=== PATIENT | male | born 1975 | race Caucasian/White ===

== ENCOUNTER 2017-07-03 00:42 | Emergency (ER) | payer SELFPAY ==
[~2017-07-03] VITALS: Ht 188 cm; Wt 159.0 kg
[~2017-07-03 00:42] MED LIST: DICY1TAB26 PO; LEVA500T33 PO; PROM1SUP12 PR; Z.0.NO CURRENT MEDS
[2017-07-03 00:44] VITALS: BP 174/85; PULSE 64; RESP 16; TEMP 97.4; O2SAT 99
[2017-07-03] MEDS ORDERED: LISI-515 PO (01:50)
[2017-07-03] MEDS ORDERED: PROCHLORPERAZINE INJ 10 MG/2 ML VIAL IV PUSH ONE (02:15)
[2017-07-03] MEDS ORDERED: SODIUM CHLORIDE 0.9% FLUSH 10 ML FLUSH IVF PRN (02:15)
[2017-07-03] MEDS ORDERED: diphenhydrAMINE HCL 50 MG/ML VIAL IV PUSH ONE (02:15)
[2017-07-03] MEDS ORDERED: ASPIRIN 81 MG CHEW TAB PO ONE (02:15)
[2017-07-03 02:27] LABS: AUTOMATED NEUTROPHIL # 8.8 TH/MM3 (1.8-7.7); BASOPHIL # 0.1 TH/MM3 (0-0.2); BASOPHIL % 0.6 % (0.0-2.0); EOSINOPHIL # 0.3 TH/MM3 (0-0.4); EOSINOPHIL % 2.3 % (0.0-4.0); HEMATOCRIT 40.7 % (39.0-51.0); HEMO FLAGS DIFF FINAL; LYMPH % 14.1 % (9.0-44.0); LYMPHOCYTE # 1.6 TH/MM3 (1.0-4.8); MEAN CELL VOLUME 76.4 FL (80.0-100.0); MEAN CORPUSCULAR HEMOGLOBIN 25.8 PG (27.0-34.0); MEAN CORPUSCULAR HGB CONC 33.7 % (32.0-36.0); MONO % 5.1 % (0.0-8.0); NEUT % 77.9 % (16.0-70.0); PLATELET COUNT 270 TH/MM3 (150-450); RED BLOOD COUNT 5.33 MIL/MM3 (4.50-5.90); RED CELL DISTRIBUTION WIDTH 14.5 % (11.6-17.2); WHITE BLOOD COUNT 11.3 TH/MM3 (4.0-11.0)
[2017-07-03 02:29] VITALS: O2SAT 95
[2017-07-03 02:39] VITALS: BP_SYST 138; BP_SYST 158; BP_DIAS 65; BP_DIAS 69; PULSE 60; RESP 16; O2SAT 95
[2017-07-03 02:42] LABS: APTT (PATIENT) 31.3 SEC (24.3-30.1); INTERNATIONAL NORMALIZED RATIO 1.1 RATIO; PROTHROMBIN TIME - PATIENT 11.8 SEC (9.8-11.6)
[2017-07-03 02:43] LABS: ANION GAP 7 MEQ/L (5-15); BICARBONATE 26.2 MEQ/L (21.0-32.0); BLOOD UREA NITROGEN 17 MG/DL (7-18); CHLORIDE 106 MEQ/L (98-107); GLOMERULAR FILTRATION RATE 103 ML/MIN (>89); SODIUM (NA) 139 MEQ/L (136-145)
--- NOTE | 2017-07-03 02:46 | RADRPT ---
EXAM DATE/TIME: 07/03/2017 02:15 [facility] COMPARISON: No previous studies available for comparison. INDICATIONS : Pt has had headache all day, now feels as if chest fluttering. MEDICAL HISTORY : None. SURGICAL HISTORY : Appendectomy. ENCOUNTER: Initial ACUITY: 1 day PAIN SCORE: 5/10 LOCATION: Bilateral chest FINDINGS: PA and lateral views of the chest demonstrate the lungs to be symmetrically aerated without evidence of mass, infiltrate or effusion. The cardiomediastinal contours are unremarkable. Osseous structure s are intact. CONCLUSION: No acute disease. Red George MD on July 03, 2017 at 2:45 Board Certified Radiologist. This report was verified electronically.
[2017-07-03 03:00] LABS: CREATINE KINASE 72 U/L (39-308)
--- NOTE | 2017-07-03 04:05 | RADRPT ---
EXAM DATE/TIME: 07/03/2017 03:36 [facility] COMPARISON: No previous studies available for comparison. INDICATIONS : Cephalgia. RADIATION DOSE: 56.35 CTDIvol (mGy) MEDICAL HISTORY : None SURGICAL HISTORY : Appendectomy. ENCOUNTER: Initial ACUITY: 1 day PAIN SCALE: 8/10 LOCATION: cranial TECHNIQUE: Multiple contiguous axial images were obtained of the head. Using automated exposure control and adj ustment of the mA and/or kV according to patient size, radiation dose was kept as low as reasonably a chievable to obtain optimal diagnostic quality images. DICOM format image data is available electro nically for review and comparison. FINDINGS: CEREBRUM: The ventricles are normal for age. No evidence of midline shift, mass lesion, hemorrhage or acute in farction. No extra-axial fluid collections are seen. POSTERIOR FOSSA: The cerebellum and brainstem are intact. The 4th ventricle is midline. The cerebellopontine angle i s unremarkable. EXTRACRANIAL: The visualized portion of the orbits is intact. SKULL: The calvaria is intact. No evidence of skull fracture. CONCLUSION: No acute disease. Red George MD on July 03, 2017 at 4:04 Board Certified Radiologist. This report was verified electronically.
[2017-07-03 04:38] VITALS: BP 140/70
--- NOTE | 2017-07-03 07:50 | PD ---
HPI Chief Complaint: Headache Time Seen by Provider: 01:56 Travel History International Travel<30 days: No Contact w/Intl Traveler<30days: No Traveled to known affect area: No History of Present Illness HPI Patient is a 42-year-old male comes in complaining of headache and chest pain. He says he has had a headache for the past few days, and has been getting worse. He says the pain is the top of his head. He denies nausea or blurred vision. He says that tonight he got nervous because he felt some fluttering and tightness to his chest. He denies nausea or vomiting. He says his mom dropped at 57 from a sudden heart attack. He has not seen a doctor in several years. [facility] Past Medical History Arthritis: No Asthma: No Autoimmune Disease: No Heart Rhythm Problems: No Cardiovascular Problems: No High Cholesterol: No Chest Pain: No Congestive Heart Failure: No COPD: No Cerebrovascular Accident: No Diabetes: No Diminished Hearing: No Gastrointestinal Disorders: No GERD: No Glaucoma: No Headaches: No Hepatitis: No Hiatal Hernia: No Hypertension: No Kidney Stones: No Musculoskeletal: No Neurologic: No Reproductive: No Respiratory: No Myocardial Infarction: No Renal Failure: No Seizures: No Sleep Apnea: No Thyroid Disease: No Ulcer: No Tetanus Vaccination: > 5 Years Influenza Vaccination: No Past Surgical History Abdominal Surgery: No AICD: No Appendectomy: Yes Cardiac Surgery: No Ear Surgery: No Endocrine Surgery: No Eye Surgery: No Genitourinary Surgery: No Gynecologic Surgery: No Oral Surgery: No Pacemaker: No Thoracic Surgery: No Social History Alcohol Use: No Tobacco Use: No Substance Use: No Allergies-Medications (Allergen,Severity, Reaction): Coded Allergies: No Known Allergies (Verified Allergy, Severe, 11/18/07) Reported Meds & Prescriptions Reported Meds & Active Scripts Active Reported Lisinopril 20 Mg Tab 20 Mg PO BID Review of Systems Except as stated in HPI: all other systems reviewed are Neg General / Constitutional: No: Fever, Chills Eyes: No: Blurred Vision HENT: Positive: Headaches Cardiovascular: Positive: Chest Pain or Discomfort, Palpitations Respiratory: No: Shortness of Breath Gastrointestinal: No: Nausea, Vomiting, Abdominal Pain Genitourinary: No: Dysuria Musculoskeletal: No: Edema, Pain Skin: No Rash, No Change in Pigmentation Neurologic: No: Weakness, Dizziness Physical Exam Narrative GENERAL: Awake and alert, in no acute distress. Obese male SKIN: Focused skin assessment warm/dry. HEAD: Atraumatic. Normocephalic. EYES: Pupils equal and round. No scleral icterus. Extraocular movements intact. ENT: No nasal bleeding or discharge. Mucous membranes pink and moist. NECK: Trachea midline. No JVD. CARDIOVASCULAR: Regular rate and rhythm. No murmur appreciated. RESPIRATORY: No accessory muscle use. Clear to auscultation. Breath sounds equal bilaterally. GASTROINTESTINAL: Abdomen soft, non-tender, nondistended. H MUSCULOSKELETAL: No obvious deformities. No clubbing. No cyanosis. No edema. NEUROLOGICAL: Awake and alert. No obvious cranial nerve deficits. Motor grossly within normal limits. Normal speech. PSYCHIATRIC: Appropriate mood and affect; insight and judgment normal. Data Data Last Documented VS Vital Signs Date Time Temp Pulse Resp B/P Pulse Ox O2 Delivery O2 Flow Rate FiO2 07/03/17 04:38 85 18 140/70 96 07/03/17 02:39 Room Air 07/03/17 00:44 97.4 Orders Basic Metabolic Panel (Bmp) (07/03/17 02:07) Ckmb (Isoenzyme) Profile (07/03/17 02:07) Complete Blood Count With Diff (07/03/17 02:07) Prothrombin Time / Inr (Pt) (07/03/17 02:07) Act Partial Throm Time (Ptt) (07/03/17 02:07) Troponin I (07/03/17 02:07) Ecg Monitoring (07/03/17 02:07) Bilateral Bp Monitoring (07/03/17 02:07) Iv Access Insert/Monitor (07/03/17 02:07) Oximetry (07/03/17 02:07) Oxygen Administration (07/03/17 02:07) Aspirin Chew (Aspirin Chew) (07/03/17 02:15) Sodium Chloride 0.9% Flush (Ns Flush) (07/03/17 02:15) Chest, Pa & Lat (07/03/17 02:07) Ct Brain W/O Iv Contrast(Rout) (07/03/17 ) Prochlorperazine Inj (Compazine Inj) (07/03/17 02:15) Diphenhydramine Inj (Benadryl Inj) (07/03/17 02:15) Labs Laboratory Tests Test 07/03/17 02:10 White Blood Count 11.3 TH/MM3 Red Blood Count 5.33 MIL/MM3 Hemoglobin 13.7 GM/DL Hematocrit 40.7 % Mean Corpuscular Volume 76.4 FL Mean Corpuscular Hemoglobin 25.8 PG Mean Corpuscular Hemoglobin 33.7 % Concent Red Cell Distribution Width 14.5 % Platelet Count 270 TH/MM3 Mean Platelet Volume 7.6 FL Neutrophils (%) (Auto) 77.9 % Lymphocytes (%) (Auto) 14.1 % Monocytes (%) (Auto) 5.1 % Eosinophils (%) (Auto) 2.3 % Basophils (%) (Auto) 0.6 % Neutrophils # (Auto) 8.8 TH/MM3 Lymphocytes # (Auto) 1.6 TH/MM3 Monocytes # (Auto) 0.6 TH/MM3 Eosinophils # (Auto) 0.3 TH/MM3 Basophils # (Auto) 0.1 TH/MM3 CBC Comment DIFF FINAL Differential Comment Prothrombin Time 11.8 SEC Prothromb Time International 1.1 RATIO Ratio Activated Partial 31.3 SEC Thromboplast Time Sodium Level 139 MEQ/L Potassium Level 4.0 MEQ/L Chloride Level 106 MEQ/L Carbon Dioxide Level 26.2 MEQ/L Anion Gap 7 MEQ/L Blood Urea Nitrogen 17 MG/DL Creatinine 0.82 MG/DL Estimat Glomerular Filtration 103 ML/MIN Rate Random Glucose 124 MG/DL Calcium Level 9.1 MG/DL Total Creatine Kinase 72 U/L Troponin I LESS THAN 0.02 NG/ML MDM Medical Decision Making Medical Screen Exam Complete: Yes Emergency Medical Condition: Yes Medical Record Reviewed: Yes Interpretation(s) ECG shows normal sinus rhythm at 61, no ST elevation or depression,. QRS duration is 131. Differential Diagnosis Tension headache versus hypertensive urgency versus ACS Narrative Course Patient is a 42-year-old male comes in complaining of headache and chest pain. Exam shows no acute abnormality. IV established, labs sent. Patient connected to quality assurance monitor chassis. Patient given Compazine and Benadryl for his headache, given aspirin. CT head performed shows no acute abnormalities. Chest x-ray shows no acute abnormality is. Labs show no acute extremities. Discussed the patient that he should stay in the chest pain center for further testing especially given the history of his mom dying in age of 57 from sudden heart attack. I explained that we cannot be sure that he is not having a heart attack based on the testing done in the emergency department. Advised she needed further testing and a stress test. He says he does not want to stay in the hospital. He verbalizes understanding of the risks of leaving AGAINST MEDICAL ADVICE, including serious illness or . He is awake, alert, oriented. He elected to sign out AMA. AMA: The risks of leaving against medical advice without further evaluation treatment were discussed with the patient. These risks include cardiac dysfunction, cardiac dysrhythmia, possible heart attack, possible stroke or . The patient indicated understanding of these risks and appeared to have the capacity to make this decision. Diagnosis Primary Impression: Left against medical advice Additional Impressions: Chest pain Qualified Code: R07.9 - Chest pain, unspecified type Headache Qualified Code: R51 - Acute nonintractable headache, unspecified headache type Patient Instructions: General Instructions Departure Forms: Tests/Procedures Disposition: 07 AGAINST MEDICAL ADVICE Condition: Stable Nohemi Humphrey MD Jul 03, 2017 07:50
--- NOTE | 2017-07-03 12:19 | EKG ---
Date Performed: 07/03/2017 Time Performed: 01:54:48 PTAGE: 42 years EKG: Sinus rhythm INTRAVENTRICULAR CONDUCTION DELAY ABNORMAL ECG NO PREVIOUS TRACING DOCTOR: Marquez Law Interpretating Date/Time 07/03/2017 12:17:39
== END 2017-07-03 04:43 | disposition left against medical advice (07) ==
LOC: NEPE 00:42
DX: R07.9 Chest pain, unspecified (principal); R51 Headache; Z82.49 Family history of ischemic heart disease and other diseases of the circulatory system
CPT/HCPCS: 70450; 71020; 80048; 82550; 84484; 85025; 85610; 85730; 93005; 96374; 96375; 99285; J0780; J1200